=== PATIENT | male | born 1965 | race Caucasian/White ===

== ENCOUNTER 2017-11-18 14:03 | Emergency (ER) | payer OTHER ==
[~2017-11-18] VITALS: Ht 180.3 cm; Wt 81.7 kg
[~2017-11-18 14:03] MED LIST: ACETAMINOPHEN-1 EAC1 PO; AUGMENTIN 875875 MG PO; AURALGAN EAR DR14 ML OTIC; IBUPROFEN 800800 MG PO; NOHOMEMEDICATIONS; PHENERGAN 25 MG25 M1 PO; PREDNISONE 10 M10 MG PO; ROBAXIN500 MG PO; VENTOLIN HFA 1818 GM INH; VICODIN 5-5001 EACH PO; ZITHROMAX TRI-500 MG PO
[2017-11-18 14:41] LABS: ABSOLUTE LYMPHOCYTES 1.8 thou/uL (0.8-5.3); ABSOLUTE MONOCYTES 1.4 thou/uL (0.0-1.2); ABSOLUTE NEUTROPHILS 9.2 thou/uL (1.6-8.1); BASOPHILS 0.4 %; EOSINOPHILS 0.3 %; HEMATOCRIT 47.1 % (42.0-52.0); HEMOGLOBIN 16.3 gm/dL (14.0-18.0); LYMPHOCYTES 14.4 %; MCH 30.1 pg (26.0-34.0); MCHC 34.5 g/dL (28.0-37.0); MCV 87.2 fL (80.0-100.0); MONOCYTES 11.4 %; MPV 8.2 fl. (7.2-11.1); NUCLEATED RBCS 0 /100WBC; PLATELET COUNT* 250 thou/uL (150-400); POLYS 73.5 %; RDW-CV 12.9 % (10.5-14.5); WBC 12.6 thou/uL (4.0-11.0)
[2017-11-18 14:46] LABS: CALCIUM 9.8 mg/dL (8.5-10.1); CREATININE 1.1 mg/dL (0.6-1.3); POTASSIUM 3.9 mmol/L (3.5-5.1)
[2017-11-18 14:51] LABS: TOTAL BILIRUBIN 1.5 mg/dL (<0.1-1.0); TOTAL PROTEIN 8.5 g/dL (6.4-8.2)
[2017-11-18] MEDS ORDERED: NORCO 5-325 TA1 EACH PO (15:44)
[2017-11-18] MEDS ORDERED: AMOXICILLIN 50500 MG PO (15:44)
[2017-11-18 16:02] VITALS: BP 157/85
== END 2017-11-18 16:04 | disposition home or self-care (01) ==
LOC: M.ERS 14:03
PROVIDERS: Family Medicine
DX: K08.89 Other specified disorders of teeth and supporting structures (principal); K04.7 Periapical abscess without sinus; Z91.040 Latex allergy status; Z88.5 Allergy status to narcotic agent; Z88.1 Allergy status to other antibiotic agents

== ENCOUNTER 2017-11-21 13:51 | Emergency (ER) | payer OTHER ==
[~2017-11-21] VITALS: Ht 180.3 cm; Wt 81.7 kg
[~2017-11-21 13:51] MED LIST changes: +AMOXICILLIN 50500 MG PO; +NORCO 5-325 TA1 EACH PO
[2017-11-21 14:29] LABS: HEMATOCRIT 46.4 % (42.0-52.0); HEMOGLOBIN 15.6 gm/dL (14.0-18.0); MCH 29.3 pg (26.0-34.0); MCHC 33.6 g/dL (28.0-37.0); MCV 87.1 fL (80.0-100.0); MPV 8.1 fl. (7.2-11.1); NUCLEATED RBCS 0 /100WBC; PLATELET COUNT* 268 thou/uL (150-400); RBC 5.33 mil/uL (4.50-6.00); RDW-CV 12.9 % (10.5-14.5); WBC 12.6 thou/uL (4.0-11.0)
[2017-11-21 14:35] LABS: CALCIUM 9.8 mg/dL (8.5-10.1); POTASSIUM 3.8 mmol/L (3.5-5.1)
[2017-11-21 14:36] LABS: APTT 28.1 Seconds (25.0-31.3)
[2017-11-21 14:39] LABS: ALBUMIN 3.8 g/dL (3.4-5.0); TOTAL BILIRUBIN 0.9 mg/dL (<0.1-1.0); TOTAL PROTEIN 8.4 g/dL (6.4-8.2)
[2017-11-21 14:57] LABS: ABSOLUTE LYMPHOCYTES 1.5 thou/uL (0.8-5.3); ABSOLUTE MONOCYTES 0.3 thou/uL (0.0-1.2); ABSOLUTE NEUTROPHILS 10.8 thou/uL (1.6-8.1); ATYPICAL LYMPHS 3 %; PLATELET ESTIMATE ADEQUATE
[2017-11-21 17:42] VITALS: BP 142/68
== END 2017-11-21 17:43 | disposition short-term general hospital (02) ==
LOC: M.ERS 13:51
PROVIDERS: Family Medicine
DX: L03.211 Cellulitis of face (principal); F10.99 Alcohol use, unspecified with unspecified alcohol-induced disorder; Z91.040 Latex allergy status; Z88.5 Allergy status to narcotic agent; Z88.1 Allergy status to other antibiotic agents

== ENCOUNTER 2019-04-03 20:34 | Inpatient (IN) | payer OTHER ==
[~2019-04-03] VITALS: Ht 152.4 cm; Wt 93.0 kg
[2019-04-03 20:40] VITALS: BP 176/101
[2019-04-03 20:50] LABS: HEMATOCRIT 47.5 % (42.0-52.0); HEMOGLOBIN 16.4 gm/dL (14.0-18.0); MCH 30.3 pg (26.0-34.0); MCHC 34.6 g/dL (28.0-37.0); MCV 87.5 fL (80.0-100.0); MPV 8.6 fl. (7.2-11.1); NUCLEATED RBCS 0 /100WBC; PLATELET COUNT* 275 thou/uL (150-400); RBC 5.43 mil/uL (4.50-6.00); WBC 12.6 thou/uL (4.0-11.0)
[2019-04-03 20:54] LABS: ABSOLUTE MONOCYTES 1.4 thou/uL (0.0-1.2)
[2019-04-03 20:55] LABS: ABSOLUTE BASOPHILS 0.1 thou/uL (0.0-0.2); ABSOLUTE EOSINOPHILS 0.2 thou/uL (0.0-0.7); BASOPHILS 0.6 %; EOSINOPHILS 1.5 %
[2019-04-03 20:56] LABS: ABSOLUTE LYMPHOCYTES 3.9 thou/uL (0.8-5.3); LYMPHOCYTES 30.6 %; MONOCYTES 11.4 %
[2019-04-03 20:57] LABS: ABSOLUTE NEUTROPHILS 7.1 thou/uL (1.6-8.1); POLYS 55.9 %
[2019-04-03 20:59] LABS: CALCIUM 9.7 mg/dL (8.5-10.1); CREATININE 1.4 mg/dL (0.6-1.3); POTASSIUM 3.5 mmol/L (3.5-5.1)
[2019-04-03 21:02] LABS: APTT 24.1 Seconds (25.0-31.3); INR 0.9; PROTIME 9.6 Seconds (9.20-11.50)
[2019-04-03 21:15] VITALS: BP 137/87
[2019-04-03 21:15] LABS: ALBUMIN 4.2 g/dL (3.4-5.0); CK-MB MASS 4.3 ng/mL (<0.5-3.6); MAGNESIUM 2.1 mg/dL (1.8-2.4); TOTAL BILIRUBIN 0.4 mg/dL (<0.1-1.0); TOTAL PROTEIN 8.1 g/dL (6.4-8.2); TROPONIN-I LEVEL 0.48 ng/mL (<0.06)
[2019-04-03 22:56] VITALS: BP 123/72
[2019-04-03 23:26] VITALS: BP 134/76
[2019-04-03 23:56] VITALS: BP 150/89
[2019-04-04] VITALS (11 sets, daily range): BP systolic 128–155; BP diastolic 76–89
[2019-04-04 04:04] LABS: HEMATOCRIT 42.8 % (42.0-52.0); HEMOGLOBIN 14.8 gm/dL (14.0-18.0); MCH 30.2 pg (26.0-34.0); MCHC 34.6 g/dL (28.0-37.0); MCV 87.1 fL (80.0-100.0); RBC 4.91 mil/uL (4.50-6.00); RDW-CV 13.1 % (10.5-14.5); WBC 11.4 thou/uL (4.0-11.0)
[2019-04-04 04:23] LABS: ANION GAP 7 mmol/L (7-16); BUN 16 mg/dL (7-18); CALCIUM 9.2 mg/dL (8.5-10.1); CHLORIDE 106 mmol/L (98-107); CHOLESTEROL 165 mg/dL (<200); CO2 26 mmol/L (21-32); GLUCOSE 114 mg/dL (70-99); HDL CHOLESTEROL 27 mg/dL (>40); LDL CHOLESTEROL 92 mg/dL (<100); POTASSIUM 4.1 mmol/L (3.5-5.1); SODIUM 139 mmol/L (136-145); TC:HDL 6.1 Ratio (Not establshd); TRIGLYCERIDE 233 mg/dL (<150); VLDL 47 mg/dL (<40)
[2019-04-04 04:26] LABS: SERUM ASSESSMENT Slight Lipemia
[2019-04-04 04:41] LABS: TROPONIN-I LEVEL 58.82 ng/mL (<0.06)
--- NOTE | 2019-04-04 05:56 | NUR ---
NO BLEEDING AND CHEST PAIN NOTED.POST OP SITE DRESSING WITH BLOOD STAIN BUT NOT SATURATED.PULSE WAS PRESENT BOTH THE LLE.PT HAD HIS SNACK AND TOLERATED.CONTINUE MONITORING AND TOWARDS GOAL.
--- NOTE | 2019-04-04 07:56 | H ---
[address] [address] HISTORY AND PHYSICAL Name: TRICIA LARA Room: [address] IN [place].#: [id number] Admission: 04/03/19 Attend Phys: Uri Rose MD, F Discharge: Date of : 65 Report #: [id number] THIS REPORT FOR: //name// CC: Uri Rose [facility] physician/PCP DATE OF SERVICE: 04/04/2019 HISTORY OF PRESENT ILLNESS: The patient is a 53-year-old white male who I was asked to see in the [facility] complaining of chest pain. The history is obtained from the patient. The patient has no previous history of heart disease. He apparently had a stress test in the past. He stays active at work. He was doing well until the past couple of days, he has been having intermittent chest heaviness. It can last for up to a couple of hours and resolved. It is not related to exertion or meals. However, this evening about an hour and a half prior to admission, he developed heaviness in his chest, his arms became heavy. It went up to his neck. He felt diaphoretic and short of breath. His brought him to the Emergency Room, he was found to be having evidence of acute inferior STEMI. I was asked to see him on an emergent basis. He denied the pain being related to food. He has had no bleeding. He has had a cough. He denied any trauma to his chest. He denies exertional dyspnea, palpitations or syncope. PAST MEDICAL HISTORY: He has had knee surgery. He is on no medications. ALLERGIES: HE HAS PREVIOUS INTOLERANCE TO MORPHINE. There is no history of hypertension, diabetes, hyperlipidemia. He is not under physician's care at this time. FAMILY HISTORY: His father had coronary artery bypass surgery. SOCIAL HISTORY: He is . He and his live in [place]. He works detailing cars. Unfortunately, has no medical insurance. He quit smoking 5 years ago. No alcohol abuse. REVIEW OF SYSTEMS: He has had no history of stroke, asthma, bleeding, liver disease, kidney disease, cancer or psychiatric illness, chronic skin condition. PHYSICAL EXAMINATION: GENERAL: Revealed a middle-aged male who appeared in moderate distress secondary to chest pain. VITAL SIGNS: Her blood pressure 140/90, pulse is 90, he is afebrile. HEENT: He is anicteric. Conjunctivae pink. Mucous members moist. NECK: Neck veins do not appear distended. Neck supple. CHEST: [place] [address] HISTORY AND PHYSICAL Name: TRICIA LARA Patricio Room: [address] IN [facility]#: [id number] Admission: 04/03/19 Attend Phys: Uri Rose MD, F Discharge: Date of : 65 Report #: [id number] CARDIOVASCULAR: Regular rate without murmur. ABDOMEN: Soft. EXTREMITIES: Had no edema. Posterior tibial pulse 2+ bilaterally. SKIN: Warm, dry. NEUROLOGIC: Nonfocal. LYMPH: No adenopathy. MUSCULOSKELETAL: No joint effusion. ECG showed a sinus rhythm with up to [address] segment elevation in II, III, aVF, reciprocal ST segment depression, I, aVL, V1 and V2. His chest x-ray showed normal heart size, clear lung dillard. LABORATORY DATA: His laboratory done in the Emergency Room, sodium 143, potassium 3.5, creatinine 1.4, glucose 131. Liver function studies were normal, although alkaline phosphatase of 123. His troponin on admission was 0.48. BNP 154. White blood cell count 12.6, hemoglobin 16.4. IMPRESSION AND RECOMMENDATIONS: 1. Acute inferior ST-elevation myocardial infarction. Recommend urgent cardiac catheterization. 2. Previous tobacco abuse. Time of this history and physical done during critical care time was from 9:30 p.m. to 10:30 p.m. <ELECTRONICALLY SIGNED> By: Uri Rose MD, [facility] 04/04/19 0756 2229 [id number] Rose MD, FAC /nt
--- NOTE | 2019-04-04 09:13 | NUR ---
RECEIVED REPORT FROM ERNIE AND ASSUMED CARE OF PT @ 2810.PT IS A/O X4,VSS,TRACING SR ON THE MONITOR.IV LEFT AC PATENT AND SALINE LOCKED.IV RIGHT AC PATENT AND SALINE LOCKED.RIGHT GROIN DRY AND INTACT WITH NO HEMATOMA-DRESSING HAS OLD BLOOD BUT NO CURRENT BLEEDING NOTED.PT IS CALM AND COOPERATIVE WITH NO C/O PAIN.PT TO TRANSFER TO TELEMETRY.PT INFORMED OF PLAN OF CARE AND COMMUNICATES UNDERSTANDING.PT LEFT RESTING IN BED WITH CALL LIGHT AND FALL PRECAUTIONS IN PLACE.WILL CONTINUE TO MONITOR.
--- NOTE | 2019-04-04 10:57 | EKG ---
[place] [address] ELECTROCARDIOGRAM REPORT Name: TRICIA LARA Room: [address] ADM IN .R.#: [id number] Admission: 04/03/19 Attend Phys: Uri Rose MD, F Discharge: Date of : 65 Report #: [id number] THIS REPORT FOR: //name// [facility] ED Test Date: 2019-04-03 Test Time: 20:36:54 Pat Name: TRICIA АННАXAVIERAb Department: Room: [facility] Gender: M Farm Equipment Service Technician: DERIC : 1965 Requested By: Stuart Be Order Number: [id number] MD: Uri Rose Measurements Intervals [place] Rate: 120 P: 57 ND: 156 QRS: 94 QRSD: 127 T: 90 QT: 311 QTc: 440 Interpretive Statements Sinus tachycardia Nonspecific intraventricular conduction delay Inferoposterior infarct, acute (RCA) Probable RV involvement, suggest recording right precordial leads Baseline wander in lead(s) V4,V5,V6 Compared to ECG 08/17/2014 15:57:02 Intraventricular conduction delay now present Myocardial infarct finding now present Electronically Signed On 04-04-2019 10:57:00 CDT by Uri Rose [email or web address] <ELECTRONICALLY SIGNED> By: Uri Rose MD, [facility] 04/04/19 1057 35 35 Uri Rose MD, [facility] /EPI
--- NOTE | 2019-04-04 11:03 | EKG ---
[place] [address] ELECTROCARDIOGRAM REPORT Name: TRICIA LARA Room: [address] ADM IN [place].#: [id number] Admission: 04/03/19 Attend Phys: Uri Rose MD, F Discharge: Date of : 65 Report #: [id number] THIS REPORT FOR: //name// [facility] Test Date: 2019-04-04 Test Time: 08:44:27 Pat Name: TRICIA SOLISROBERTOAb Department: Room: [address] Gender: M Automotive Parts Clerk: : 1965 Requested By: Uri Rose Order Number: [id number] Reading MD: Uri Rose Measurements Intervals [place] Rate: 72 P: 56 [place]: 161 QRS: -44 QRSD: 89 T: -28 QT: 430 QTc: 471 Interpretive Statements Sinus rhythm Abnormal R-wave progression, early transition Inferior infarct, recent Compared to ECG 08/17/2014 15:57:02 Myocardial injury no longer present Sinus tachycardia no longer present Electronically Signed On 04-04-2019 11:03:40 CDT by Uri Rose [email or web address] <ELECTRONICALLY SIGNED> By: Uri Rose MD, [facility] 04/04/19 1103 0844 0844 Uri Rose MD, [facility] /EPI
--- NOTE | 2019-04-04 11:55 | NUR ---
PT.SLEEPY BUT ORIENTED. STATED HE LIVES WITH HIS AND 4 CHILDREN. ONE OF HIS CHILDREN IS SPECIAL NEEDS. HE IS INDPENDENT AND ACTIVE. HE WORKS FOR [employer] BUT DOES NOT HAVE INSURANCE AT THIS TIME. GAVE HIM INFORMATION FOR THE UNINSURED, INCLUDING A GOOD RX CARD. HE SAID HE HAS TRIED TO GET FINANCIAL ASSISTANCE FROM THE HOSPITAL BEFORE ON OTHER VISITS BUT THEY TELL HIM HE MAKES TOO MUCH AND AUTOMATICALLY TURNS HIM INTO COLLECTIONS. HE SAID COLLECTIONS CALL HIM ALL THE TIME. IF THEY WOULD LET HIM MAKE PAYMENTS, HE COULD PROBABLY DO THAT BUT THEY WANT THE WHOLE AMOUNT UP FRONT. HE SAID HE DOESN'T UNDERSTAND HOW THEY MAKE TOO MUCH AND HAVE 6 IN THEIR HOUSEHOLD. ENCOURAGED HIM TO TALK WITH THE BUSINESS OFFICE AGAIN. CM WILL ALSO LOOK INTO THIS.
--- NOTE | 2019-04-04 16:48 | NUR ---
pt ok to transfer to telemetry.report called to marlo youssef.pt informed of plan of care and communicates understanding.all personal belongings packed and taken with pt.pt transferred by wheelchair to room 220.
[2019-04-05] VITALS: BP 120/65; BP 123/65
[2019-04-05 04:00] VITALS: BP 111/71
--- NOTE | 2019-04-05 06:33 | NUR ---
PATIENT REMAINS WITHOUT CHEST PAIN OR DISCOMFORT THIS SHIFT. RIGHT GROIN CATH SITE WITHOUT HEMATOMA OR BRUISING. DRIED BLOOD NOTED TO DRESSING. PATIENT TO HAVE ANOTHER CATH TODAY, NPO POST MIDNIGHT AND VERBALIZES UNDERSTANDING. CALL LIGHT WITHIN REACH
[2019-04-05 11:08] VITALS: BP 132/78
--- NOTE | 2019-04-05 11:17 | NUR ---
ASSUMED PT CARE AT 0800, AOX4, UP AD CARMEL. O2 SAT 90'S RA. DENIES PAIN. TRACING SR ON LOADER HELPER SORTING YARD. CATH SITE C/D/I. PT FOR SECOND PART OF HEART SCAN, SCHED 04/06/19. VSS, AM ASSESSMENT CHARTED. MEDS GIVEN PER MAR. CALL LIGHT WITHIN REACH. WILL CONTINUE TO MONITOR.
[2019-04-05 12:06] VITALS: BP 113/74
[2019-04-05 15:41] VITALS: BP 101/61
--- NOTE | 2019-04-05 18:37 | NUR ---
PT AOX4, UP AD CARMEL, O2 AT 90'S RA. SR ON TELE. PT NPO MIDNIGHT FOR HEART CATH TOMORROW. 2 IV INTACT. VSS, DENIES PAIN. CALL LIGHT WITHIN REACH. WILL CONTINUE TO MONITOR
[2019-04-05 19:40] VITALS: BP 122/82
[2019-04-06] VITALS (18 sets, daily range): BP systolic 90–145; BP diastolic 56–83
--- NOTE | 2019-04-06 07:23 | NUR ---
PT CARE ASSUMED AT 1930. SAT MAINTAINED IN RA. ALERT AND ORIENTED X4. CALL LIGHT WITHIN REACH AND BED IN LOW POSITION. DENIES PAIN AND SOB. HOURLY ROUNDING DONE FOR PT SAFETY.
--- NOTE | 2019-04-06 12:47 | NUR ---
VSS, ASSUMED CARE IN THE AM, ASSESSMENT PERFORMED AND CHARTED, FALL PRECAUTIONS IN PLACE AND CALL LIGHT IN REACH, PT IS A&O4 AND UP ADLIB AND DENIES ANY PAIN, [place] IS TRACING SR ON THE MONITOR, PT GOAL IS TO COMPLETE CATH WITH NO COMPLICATIONS, WILL FOLLOW WITH PLAN OF CARE,
--- NOTE | 2019-04-06 16:50 | EKG ---
[place] [address] ELECTROCARDIOGRAM REPORT Name: TRICIA LARA Room: [address] ADM IN [place].#: [id number] Admission: 04/03/19 Attend Phys: Uri Rose MD, F Discharge: Date of : 65 Report #: [id number] THIS REPORT FOR: //name// [facility] Test Date: 2019-04-06 Test Time: 12:58:01 Pat Name: TRICIA LARA Department: Room: [address] Gender: M Ferruler: : 1965 Requested By: Uri Rose Order Number: [id number] Estiven MD: Tarik Valdez Measurements Intervals [place] Rate: 70 P: 45 [place]: 174 QRS: -50 QRSD: 105 T: -54 QT: 422 QTc: 456 Interpretive Statements Sinus rhythm Inferior infarct, recent Compared to ECG 04/04/2019 08:44:27 No significant changes Electronically Signed On 04-06-2019 16:49:42 CDT by Tarik Valdez [email or web address] <ELECTRONICALLY SIGNED> By: Tarik Valdez MD, [facility] 04/06/19 1649 1258 1258 Tarik Valdez MD, [facility] /EPI
--- NOTE | 2019-04-06 18:10 | CARD ---
[address] [address] CARDIAC CATH REPORT Name: TRICIA LARA Room: [address] IN [facility].#: [id number] Admission: 04/03/19 Attend Phys: Uri Rose MD, F Discharge: Date of : 65 Report #: [id number] THIS REPORT FOR: //name// APPROVED REPORT Study performed: 04/06/2019 10:08:35 Patient Details Patient Status: In-Patient Room #: The patient is a 53 year-old male Event Personnel Uri Rose Video Network Engineer, Larisa Darling RN RN, Tricia Cortes RTR Scrub, Deonte Merida (R) Scrub, Rashmi Santacruz RN Monitor Procedures Performed Art Access - R radial artery Indication Abnormal ECG, Chest pain Risk Factors Tobacco History () Previous Procedures/Diagnoses Previous PCI, Previous MS Admission/Lab Medications/Medications given during procedure Heparin Unfract. Procedure Narrative The patient was brought electively to the Cardiac Catheterization Laboratory and was prepped and draped in a sterile manner. The right wrist was infiltrated with subcutaneous anesthesia. A Slender Glidesheath sheath was inserted into the right radial artery. Coronary angiography was performed using coronary diagnostic catheters. The right coronary system was accessed and visualized with a JR4 6fr. catheter. The left coronary system was accessed and visualized with a 6F XB LAD 3.5 catheter. Left ventricular/Aortic Valve gradient assessed via catheter pullback. Closure device was deployed with a 6 Fr Vasc-Band Reg 24cm. The patient tolerated the procedure well and there were no complications associated with the procedure. [place] [address] CARDIAC CATH REPORT Name: TRICIA LARA Room: [address] IN [facility]#: [id number] Admission: 04/03/19 Attend Phys: Uri Rose MD, F Discharge: Date of : 65 Report #: [id number] Intraoperative Conscious Sedation Sedation start time: 1116 Case end Time: 1210 Fentanyl 50 mcg Versed 3 mg Fluoro Time: 9.2 minutes Dose: DAP 28037 cGycm2 1592 mGy Contrast Type and Amount: Omnipaque 180 ml Coronary Angiography The patient's coronary anatomy is right dominant. Diagnostic Cath Left Main 0% stenosis LAD 90% mid stenosis noted Diagonal 1 90% proximal stenosis noted just prior to the artery bifurcating Circumflex 0% stenosis Right Coronary 30% proximal stenosis with distal stent having 0% stenosis Left Ventriculography Left Ventriculography was not performed. Hemodynamics The aortic pressure is 100/68 mmHg with a mean of 81 mmHg. The left ventricular pressure is 113/6 mmHg with a mean of mmHg. The left ventricular end diastolic pressure is 8 mmHg. There was no gradient across the aortic valve upon pullback. Pullback from the left ventricle to the aorta revealed no gradient across the aortic valve. PCI Technique Lesion Anticoagulation was achieved with Heparin. Patient was preloaded with Plavix. Percutaneous coronary intervention was performed on the mid left anterior descending artery segment. The lesion stenosis prior to intervention was 90% with XOCHILT 3 flow. A 6F XB LAD 3.5 Guide Catheter was used to engage the lm ostium. A IG: BMW 190cm Interventional Guidewire was used to cross the lesion. BALLOON DILATION A Balloon catheter Mini Trek RX 2.0 X 8 was inserted and inflated up to 16.00atm for 19seconds. Repeat angiography revealed the following post-dilatation results: 40% stenosis. [place] [address] CARDIAC CATH REPORT Name: TRICIA LARA Patricio Room: [address]#: [id number] Admission: 04/03/19 Attend Phys: Uri Rose MD, F Discharge: Date of : 65 Report #: [id number] A bare metal stent Mini Vision RX 2.25 X 15 was inserted and inflated up to 8.00atm for 30seconds. Repeat angiography revealed the following post-stent deployment results: 0% stenosis. Additional Inflation: 12.00atm for 15seconds. Additional Inflation: 14.00atm for 22seconds. Final angiography reveals 0 % stenosis with XOCHILT 3 flow. PCI Technique Lesion 2 Percutaneous Coronary Intervention was performed on the first diagnonal branch segment. Patient was preloaded with Plavix. Percutaneous coronary intervention was performed on the first diagonal branch segment. The lesion stenosis prior to intervention was 90% with XOCHILT 3 flow. A 6F XB LAD 3.5 Guide Catheter was used to engage the lm ostium. A IG: BMW 190cm Interventional Guidewire was used to cross the lesion. Balloon Dilation A Balloon catheter Mini Trek RX 2.0 X 8 was inserted and inflated up to 6.00atm for 11seconds. Repeat angiography revealed the following post-dilatation results: 30% stenosis. Additional Inflation: 7.00atm for 16seconds. Additional Inflation: 8.00atm for 15seconds. Stent Deployment A bare metal stent Mini Vision RX 2.25 X 12 was inserted and inflated up to 8.00atm for 24seconds. Repeat angiography revealed the following post-stent deployment results: 0% stenosis. Additional Inflation: 8.00atm for 13seconds. Additional Inflation: 8.00atm for 16seconds. Final angiography reveals 0 % stenosis with XOCHILT 3 flow. Conclusion 1. no restenosis of stent in the distal rca 2. 90% stenosis noted of mid lad and proximal first diagonal branch 3. successful placement of bare metal stents in the lad and diagonal [place] [address] CARDIAC CATH REPORT Name: TRICIA LARA Room: [address] IN [facility]#: [id number] Admission: 04/03/19 Attend Phys: Uri Rose MD, F Discharge: Date of : 65 Report #: [id number] Cardiac Rehabilitation Referral [facility] <ELECTRONICALLY SIGNED> By: Uri Rose MD, FACC 04/06/191809 09 09Dajackelyn Rose MD, FACC /INF
--- NOTE | 2019-04-06 18:37 | NUR ---
VSS, ASSUMED CARE IN THE AM, ASSESSMENT PEROFORMED AND CHARTED, FALL PRECAUTIONS IN PLACE NAD CALL LIGHT IN REACH, PT IS TRACING SR ON THE MONITOR, ON RA, AND IS A&O4 AND DENIES ANY PAIN THIS AM, PT GOAL IS TO COMPLETE CATH TODAY, AT THIS TIME PT IS BACK FROM CATH RIGHT WRIST CATH SITE IS C/D/I, PT STATES PAIN 7 OUT OF 10 ONE PAIN PILL WAS GIVEN, HOURLY ROUNDS COMPLETE AND CHART CHECKED,
[2019-04-07] VITALS: BP 131/79
[2019-04-07 04:00] VITALS: BP 133/59
[2019-04-07 04:28] LABS: HEMATOCRIT 44.3 % (42.0-52.0); HEMOGLOBIN 14.7 gm/dL (14.0-18.0); MCH 29.4 pg (26.0-34.0); MCHC 33.3 g/dL (28.0-37.0); MCV 88.3 fL (80.0-100.0); MPV 8.8 fl. (7.2-11.1); RBC 5.01 mil/uL (4.50-6.00); RDW-CV 12.9 % (10.5-14.5); WBC 8.6 thou/uL (4.0-11.0)
[2019-04-07 04:52] LABS: CALCIUM 9.2 mg/dL (8.5-10.1); CREATININE 0.9 mg/dL (0.6-1.3); POTASSIUM 4.2 mmol/L (3.5-5.1)
[2019-04-07 05:02] LABS: TROPONIN-I LEVEL 9.05 ng/mL (<0.06)
[2019-04-07 08:00] VITALS: BP 139/80
[2019-04-07] MEDS ORDERED: ASPIR 8181 MG PO (11:28)
[2019-04-07] MEDS ORDERED: PLAVIX 75 MG TA75 M1 PO (11:29)
[2019-04-07] MEDS ORDERED: LIPITOR40 MG PO (11:29)
[2019-04-07] MEDS ORDERED: LOPRESSOR25 PO (11:30)
[2019-04-07] MEDS ORDERED: APAP650 PO (11:34)
[2019-04-07] MEDS ORDERED: NITROGLYCERIN0.4 MG SUBLING (11:34)
[2019-04-07 11:42] VITALS: BP 132/78
[2019-04-07 11:44] VITALS: BP 132/78
--- NOTE | 2019-04-07 12:21 | NUR ---
RECEIVED REPORT FROM GILMAR MOON. ASSUMED CARE OF PT AROUND 0730. PT A&O X4. VSS. RESOURCE CONSERVATION SPECIALIST IN PLACE TRACING SR. AM ASSESSMENT AND VITALS COMPLETED CHARTED. PT DENIES PAIN, ONLY STATING THAT RIGHT GROIN AND RIGHT WRIST CATH SITES WERE "A BIT SORE". PT DENIES NEED FOR INTERVENTION FOR PAIN. DR GALVEZ IN TO SEE PT - DISCHARGE ORDERS RECEIVED. DISCHARGE COMPLETED DOCUMENTED. DISCHARGE SUMMARY, SCRIPTS AND CARE NOTES GONE OVER WITH PT - PT AND SPOUSE. BOTH COMMUNICATE UNDERSTANDING. IV'S REMOVED. RESOURCE CONSERVATION SPECIALIST REMOVED. ALL BELONGINGS GATHERED AND SENT HOME WITH PT. PT LEFT UNIT WALKING WITH NURSING STAFF. PT LEFT HOSPITAL IN CAR WITH SPOUSE AND CHILDREN.
--- NOTE | 2019-04-07 17:03 | EKG ---
[place] [address] ELECTROCARDIOGRAM REPORT Name: TRICIA LARA Room: [address] DIS IN M.R.#: [id number] Admission: 04/03/19 Attend Phys: Uri Rose MD, F Discharge: 04/07/19 Date of : 65 Report #: [id number] THIS REPORT FOR: //name// [facility] Test Date: 2019-04-07 Test Time: 08:30:09 Pat Name: TRICIA LARA Department: Room: [address] Gender: M Him Assistant: JAndreia : 1965 Requested By: Uri Rose Order Number: [id number] Estiven MD: Tarik Valdez Measurements Intervals [place] Rate: 72 P: 65 NM: 181 QRS: -45 QRSD: 89 T: -5 QT: 380 QTc: 416 Interpretive Statements Sinus rhythm Inferior infarct, recent Compared to ECG 04/06/2019 12:58:01 No significant changes Electronically Signed On 04-07-2019 17:03:16 CDT by Tarik Valdez [email or web address] <ELECTRONICALLY SIGNED> By: Tarik Valdez MD, [facility] 04/07/19 1703 9 Tarik Valdez MD, [facility] /EPI
--- NOTE | 2019-04-07 17:32 | D ---
[address] [address] DISCHARGE SUMMARY Name: TRICIA LARA Room: [address] IN .[place].#: [id number] Admission: 04/03/19 Attend Phys: Uri Rose MD, F Discharge: 04/07/19 Date of : 65 Report #: [id number] THIS REPORT FOR: //name// CC: Uri Rose [facility] physician/PCP DATE OF SERVICE: 04/07/2019 DISCHARGE DIAGNOSES: 1. Acute inferior wall ST-segment elevation myocardial infarction. 2. Coronary artery disease. 3. Hyperlipidemia. 4. Cardiomyopathy. CONSULTANTS: None. PROCEDURES: 1. Emergent left heart catheterization from the right femoral artery with placement of a single bare metal stent in the right coronary artery. 2. Elective cardiac catheterization from the right radial artery with placement of bare metal stents in the LAD and diagonal branch. HISTORY OF PRESENT ILLNESS: The patient is a 53-year-old white male, who came to the Emergency Room complaining of chest pain. The patient had no previous history of heart disease. He stays fairly active at work, detailing cars. He was doing well until the past several days. He was having intermittent chest heaviness that can last up to a couple of hours. However, on the evening of admission, he developed heaviness in his chest, his arms became heavy, he felt diaphoretic and short of breath. His brought him to the Emergency Room and ECG showed he was having inferior STEMI. I was asked to see him on an emergent basis. PAST MEDICAL HISTORY: Significant for a knee surgery. MEDICATIONS: He was on no medications. ALLERGIES: HE HAD A PREVIOUS INTOLERANCE TO MORPHINE. SOCIAL HISTORY: Unfortunately, he had no medical insurance. PHYSICAL EXAMINATION: VITAL SIGNS: Blood pressure was 140/90 and pulse is 90. CHEST: Clear to auscultation. CARDIAC: Regular rate and rhythm. ABDOMEN: Soft. EXTREMITIES: [place] [address] DISCHARGE SUMMARY Name: TRICIA LARA Patricio Room: [address]#: [id number] Admission: 04/03/19 Attend Phys: Uri Rose MD, F Discharge: 04/07/19 Date of : 65 Report #: [id number] DIAGNOSTIC DATA: His ECG showed sinus rhythm with up to [address]-segment elevation in lead II, III and aVF. Chest x-ray, normal heart size, clear lung dillard. LABORATORY DATA: Creatinine 1.4 and glucose 131. Liver function studies were normal. Troponin 0.48. White blood cell count 12.6 and hemoglobin 16.4. HOSPITAL COURSE: The patient was found to be having evidence of an acute inferior STEMI for approximately 1-1/2 hours. He was taken urgently to the cardiac catheterization lab and I performed an emergent cardiac catheterization from the right femoral artery. Results showed an ejection fraction of 40% to 45% with moderate inferior wall hypokinesis and mild mitral regurgitation; he was noted to have a 90% narrowing in the mid LAD, 90% narrowing of the first diagonal branch; circumflex had no significant disease; the right coronary artery was completely occluded just beyond the acute margin; this appeared to be a recent occlusion. He was then given heparin and Aggrastat. I performed emergent angioplasty with reperfusion of the right coronary artery. I then placed a single bare metal stent in the right coronary artery, which he tolerated well. An Angio-Seal was placed. He was started on Plavix and aspirin. Fortunately, he had no further chest pain, arrhythmias or heart failure. Two days later, the patient was taken back to the cardiac catheterization lab and I performed an angiogram from the right radial artery. No ventriculogram was performed. The stent in the right coronary had no restenosis. I then placed bare metal stents in the LAD and diagonal branch. He tolerated this well. He was discharged the following day. He had no significant hematoma in the right wrist or groin. Followup ECG showed a sinus rhythm with evidence of previous inferior infarction. Lab work following his second angiogram showed a creatinine of 0.9. Fasting blood sugar 101. His troponin peaked following his STEMI at 58. His cholesterol was 165, triglycerides 233, HDL 27 and LDL 92. Followup hemoglobin after his second heart catheterization was 14.7. At the time of discharge, the patient was ambulating, had no further complaints. He was seen by cardiac rehab and recommended he enroll in cardiac rehabilitation. At the time of discharge, his blood pressure was 130/60 and pulse 66. He was discharged on the following medications: Aspirin 81 mg a day, Lipitor 40 mg a day, Plavix 75 mg a day, metoprolol tartrate 25 mg twice a day, and he was given nitroglycerin to take as needed for chest pain. I recommend he start an exercise program, maintain low-fat diet. He is scheduled to return to see my nurse practitioner in 1 week. If he remains stable, he will be given a uajgiw-oz-lues release. His prognosis is felt to be [facility] [address] [facility] [place] [address] DISCHARGE SUMMARY Name: TRICIA LARA Room: [facility] IN M.R.#: [id number] Admission: 04/03/19 Attend Phys: Uri Rose MD, F Discharge: 04/07/19 Date of : 65 Report #: [id number] from cardiac standpoint because of stenting and only minimal left ventricular systolic dysfunction. The patient was to contact my office if he had recurrent chest pain or palpitations. I also recommend he obtain a primary care physician. <ELECTRONICALLY SIGNED> By: Uri Rose MD, FACC 04/07/19 1732 0813 0836Davimiller Rose MD, FAC /nt
== END 2019-04-07 12:15 | disposition home or self-care (01) | DRG 249 ==
LOC: M.ERS 20:34 → M.ICU 21:15 → M.TBA-ER 21:15 → M.ICU 22:21 → M.2W 04-04 17:07
PROVIDERS: Family Medicine; ADMIT Internal Medicine Cardiovascular Disease
PROC: 4A023N7 Measurement of Cardiac Sampling and Pressure, Left Heart, Percutaneous Approach (ICD-10-PCS; principal; 2019-04-06)
PROC: 02713EZ Dilation of Coronary Artery, Two Arteries with Two Intraluminal Devices, Percutaneous Approach (ICD-10-PCS; principal; 2019-04-06)
PROC: B2111ZZ Fluoroscopy of Multiple Coronary Arteries using Low Osmolar Contrast (ICD-10-PCS; principal; 2019-04-06)
DX: I21.19 ST elevation (STEMI) myocardial infarction involving other coronary artery of inferior wall (principal); I42.9 Cardiomyopathy, unspecified; I25.10 Atherosclerotic heart disease of native coronary artery without angina pectoris; E78.5 Hyperlipidemia, unspecified; Z88.6 Allergy status to analgesic agent; Z88.1 Allergy status to other antibiotic agents; Z91.040 Latex allergy status; Z82.49 Family history of ischemic heart disease and other diseases of the circulatory system; Z79.899 Other long term (current) drug therapy

== ENCOUNTER 2019-09-20 16:10 | Emergency (ER) | payer OTHER ==
[~2019-09-20] VITALS: Ht 180.3 cm; Wt 86.6 kg
[~2019-09-20 16:10] MED LIST changes: +APAP650 PO; +ASPIR 8181 MG PO; +LIPITOR40 MG PO; +LOPRESSOR25 PO; +NITROGLYCERIN0.4 MG SUBLING; +PLAVIX 75 MG TA75 M1 PO
[2019-09-20 16:17] VITALS: BP 154/93
[2019-09-20] MEDS ORDERED: LIPITOR40 MG PO (16:36)
[2019-09-20] MEDS ORDERED: PLAVIX 75 MG TA75 MG PO (16:36)
== END 2019-09-20 16:43 | disposition home or self-care (01) ==
LOC: M.ERS 16:10
DX: E78.00 Pure hypercholesterolemia, unspecified (principal); Z76.0 Encounter for issue of repeat prescription; Z88.1 Allergy status to other antibiotic agents; Z88.5 Allergy status to narcotic agent; Z91.040 Latex allergy status; Z95.5 Presence of coronary angioplasty implant and graft